=== PATIENT | male | born 1930 | race Caucasian/White ===

== ENCOUNTER → 2018-12-11 | Outpatient (CLI) | payer MEDICARE ==
[2018-12-11 12:14] LABS: Basophils % (A) 1 %; Eosinophils # (A) 0.1 k/uL (0-0.7); Eosinophils % (A) 1 %; HCT 37.8 % (39.0-53.0); HGB 11.7 gm/dL (13.0-17.5); Hypochromasia Moderate; Lymphocytes # (A) 1.3 k/uL (1.0-4.8); Lymphocytes % (A) 23 %; MCH 27.1 pg (25.0-35.0); MCHC 30.9 g/dL (31.0-37.0); MCV 87.5 fL (80.0-100.0); Mean Platelet Volume 7.6; Monocytes # (A) 0.4 k/uL (0-1.0); Monocytes % (A) 6 %; Neutrophils # (A) 3.7 k/uL (1.3-7.7); Neutrophils % (A) 65 %; Platelet Count 224 k/uL (150-450); RBC 4.32 m/uL (4.30-5.90); RDW 15.8 % (11.5-15.5); WBC 5.7 k/uL (3.8-10.6)
[2018-12-11 19:41] LABS: Albumin 4.2 g/dL (3.80-4.90); Albumin/Globulin Ratio 2.1 (1.60-3.17); Anion Gap 8.5 mmol/L (4.00-12.00); Calcium 9.2 mg/dL (8.7-10.3); Carbon Dioxide 26.5 mmol/L (21.6-31.8); Potassium 4.7 mmol/L (3.5-5.5); Total Bilirubin 0.4 mg/dL (0.3-1.2); Total Protein 6.2 g/dL (6.2-8.2)
== END ==
LOC: LABWHC1 11:16
PROVIDERS: ATTEND Internal Medicine Cardiovascular Disease
DX: I50.9 Heart failure, unspecified (principal); I51.9 Heart disease, unspecified
CPT/HCPCS: 36415; 80053; 83880; 85025

== ENCOUNTER 2020-03-10 11:10 | Inpatient (IN) | payer MEDICARE ==
[2020-03-10] MEDS ORDERED: SODIUM CHLORIDE 0.9% 500 ML 500 ML IV STA (11:34)
--- NOTE | 2020-03-10 11:51 | ED ---
General Adult HPI - General Chief complaint: Syncope Stated complaint: Weakness, Near Syncope Time Seen by Provider: 03/10/20 11:19 Source: patient, EMS, RN notes reviewed, old records reviewed Mode of arrival: EMS Limitations: no limitations - History of Present Illness Initial comments: 89-year-old male presenting for evaluation of lightheadedness, near-syncope. Patient has had multiple episodes over the past one week. He had fallen this morning and called EMS. He was unable to stand. He does live at home alone. He has history of atrial fibrillation. He states he's felt lightheaded for at least one week. He fell this morning without any head or neck trauma. He has no pain complaints. Denies chest pain. Denies dyspnea, denies abdominal pain nausea vomiting. He states he did not eat or drink yet today. - Related Data Home Medications Medication Instructions Recorded Confirmed Acetaminophen [Tylenol] 1,000 mg PO BID PRN 03/10/20 03/10/20 Carvedilol [Coreg] 3.125 mg PO BID 03/10/20 03/10/20 Furosemide [Lasix] 40 mg PO DAILY 03/10/20 03/10/20 Glimepiride [Amaryl] 1 mg PO Q48H 03/10/20 03/10/20 Losartan Potassium [Cozaar] 25 mg PO DAILY 03/10/20 03/10/20 Potassium Chloride ER [K-Dur 10] 10 meq PO W/BRKFST 03/10/20 03/10/20 Spironolactone [Aldactone] 25 mg PO DAILY 03/10/20 03/10/20 Tamsulosin HCl [Flomax] 0.4 mg PO DAILY 03/10/20 03/10/20 Warfarin [Coumadin] 2.5 mg PO DAILY 03/10/20 03/10/20 Allergies Allergy/AdvReac Type Severity Reaction Status Date / Time No Known Allergies Allergy Verified 03/10/20 11:48 Review of Systems ROS Statement: Those systems with pertinent positive or pertinent negative responses have been documented in the HPI. ROS Other: All systems not noted in ROS Statement are negative. Past Medical History Past Medical History: Heart Failure, Diabetes Mellitus, Hypertension, Syncope History of Any Multi-Drug Resistant Organisms: None Reported Past Surgical History: Cholecystectomy Past Psychological History: Depression Smoking Status: Former smoker Past Alcohol Use History: None Reported Past Drug Use History: None Reported General Exam Limitations: no limitations General appearance: alert, in no apparent distress Head exam: Present: atraumatic, normocephalic Eye exam: Present: normal appearance, PERRL ENT exam: Present: mucous membranes dry Neck exam: Present: normal inspection. Absent: tenderness, meningismus Respiratory exam: Present: normal lung sounds bilaterally. Absent: respiratory distress, wheezes Cardiovascular Exam: Present: regular rate, irregular rhythm GI/Abdominal exam: Present: soft. Absent: distended, tenderness, guarding Extremities exam: Present: pedal edema Neurological exam: Present: alert, oriented X3, CN II-XII intact. Absent: motor sensory deficit Psychiatric exam: Present: normal affect, normal mood Skin exam: Present: warm, dry, intact Course Vital Signs 03/10/20 03/10/20 03/10/20 11:23 11:52 12:27 Temperature 97.6 F Pulse Rate 72 70 78 Respiratory 18 17 18 Rate Blood Pressure 117/89 122/73 122/73 O2 Sat by Pulse 96 97 95 Oximetry EKG Findings - EKG Comments: EKG Findings:: EKG: Atrial n, left bundle branch block, rate of 74, QRS duration 142, QTC [address] segment elevation. Medical Decision Making - Medical Decision Making 89-year-old male with lightheadedness, near-syncope, multiple falls. Workup reveals mild leukocytosis, stable hemoglobin, INR is 1.4. Urinalysis shows 2+ ketones, likely suggesting a degree of dehydration. Chest x-ray negative for fo haritha pneumonia, consistent with pulmonary hypertension. Patient will be For telemetry, echo for the near syncopal episodes. He is discussed with Dr. Teixeira who will admit. - Lab Data Result diagrams: 03/10/20 11:46 03/10/20 11:46 Lab Results 03/10/20 03/10/20 03/10/20 Range/Units 11:46 11:46 11:46 WBC 11.4 H (3.8-10.6) k/uL RBC 4.62 (4.30-5.90) m/uL Hgb 13.6 (13.0-17.5) gm/dL Hct 42.8 (39.0-53.0) % MCV 92.7 (80.0-100.0) fL MCH 29.5 (25.0-35.0) pg MCHC 31.8 (31.0-37.0) g/dL RDW 13.9 (11.5-15.5) % Plt Count 238 (150-450) k/uL Neutrophils % 82 % Lymphocytes % 9 % Monocytes % 7 % Eosinophils % 0 % Basophils % 0 % Neutrophils # 9.3 H (1.3-7.7) k/uL Lymphocytes # 1.1 (1.0-4.8) k/uL Monocytes # 0.8 (0-1.0) k/uL Eosinophils # 0.1 (0-0.7) k/uL Basophils # 0.0 (0-0.2) k/uL Hypochromasia Slight PT 14.1 H (9.0-12.0) sec INR 1.4 H (<1.2) APTT 30.2 H (22.0-30.0) sec Sodium 142 (137-145) mmol/L Potassium 3.5 (3.5-5.1) mmol/L Chloride 99 (98-107) mmol/L Carbon Dioxide 26 (22-30) mmol/L Anion Gap 17 mmol/L BUN 20 (9-20) mg/dL Creatinine 1.13 (0.66-1.25) mg/dL Est GFR (CKD-EPI)AfAm 67 (>60 ml/min/1.73 sqM) Est GFR (CKD-EPI)NonAf 58 (>60 ml/min/1.73 sqM) Glucose 109 H (74-99) mg/dL Plasma Lactic Acid Joseph (0.7-2.0) mmol/L Calcium 8.7 (8.4-10.2) mg/dL Magnesium 2.3 (1.6-2.3) mg/dL Total Bilirubin 1.2 (0.2-1.3) mg/dL AST 38 (17-59) U/L ALT 18 (4-49) U/L Alkaline Phosphatase 91 (38-126) U/L Troponin I (0.000-0.034) ng/mL Total Protein 7.2 (6.3-8.2) g/dL Albumin 3.9 (3.5-5.0) g/dL Urine Color Urine Appearance (Clear) Urine pH (5.0-8.0) Ur Specific [place] (1.001-1.035) Urine Protein (Negative) Urine Glucose (UA) (Negative) Urine Ketones (Negative) Urine Blood (Negative) Urine Nitrite (Negative) Urine Bilirubin (Negative) Urine Urobilinogen (<2.0) mg/dL Ur Leukocyte Esterase (Negative) Urine RBC (0-5) /hpf Urine WBC (0-5) /hpf Hyaline Casts (0-2) /lpf Urine Mucus (None) /hpf 03/10/20 03/10/20 03/10/20 Range/Units 11:46 11:46 13:05 WBC (3.8-10.6) k/uL RBC (4.30-5.90) m/uL Hgb (13.0-17.5) gm/dL Hct (39.0-53.0) % MCV (80.0-100.0) fL MCH (25.0-35.0) pg MCHC (31.0-37.0) g/dL RDW (11.5-15.5) % Plt Count (150-450) k/uL Neutrophils % % Lymphocytes % % Monocytes % % Eosinophils % % Basophils % % Neutrophils # (1.3-7.7) k/uL Lymphocytes # (1.0-4.8) k/uL Monocytes # (0-1.0) k/uL Eosinophils # (0-0.7) k/uL Basophils # (0-0.2) k/uL Hypochromasia PT (9.0-12.0) sec INR (<1.2) APTT (22.0-30.0) sec Sodium (137-145) mmol/L Potassium (3.5-5.1) mmol/L Chloride (98-107) mmol/L Carbon Dioxide (22-30) mmol/L Anion Gap mmol/L BUN (9-20) mg/dL Creatinine (0.66-1.25) mg/dL Est GFR (CKD-EPI)AfAm (>60 ml/min/1.73 sqM) Est GFR (CKD-EPI)NonAf (>60 ml/min/1.73 sqM) Glucose (74-99) mg/dL Plasma Lactic Acid Joseph 1.5 (0.7-2.0) mmol/L Calcium (8.4-10.2) mg/dL Magnesium (1.6-2.3) mg/dL Total Bilirubin (0.2-1.3) mg/dL AST (17-59) U/L ALT (4-49) U/L Alkaline Phosphatase (38-126) U/L Troponin I 0.013 (0.000-0.034) ng/mL Total Protein (6.3-8.2) g/dL Albumin (3.5-5.0) g/dL Urine Color Yellow Urine Appearance Clear (Clear) Urine pH 6.0 (5.0-8.0) Ur Specific [place] 1.021 (1.001-1.035) Urine Protein 1+ H (Negative) Urine Glucose (UA) Negative (Negative) Urine Ketones 2+ H (Negative) Urine Blood Negative (Negative) Urine Nitrite Negative (Negative) Urine Bilirubin Negative (Negative) Urine Urobilinogen 4.0 (<2.0) mg/dL Ur Leukocyte Esterase Negative (Negative) Urine RBC <1 (0-5) /hpf Urine WBC 1 (0-5) /hpf Hyaline Casts 14 H (0-2) /lpf Urine Mucus Occasional H (None) /hpf Disposition Clinical Impression: Dehydration, Near syncope Disposition: ADMITTED IP TO THIS [facility] Condition: Stable Is patient prescribed a controlled substance at d/c from ED?: No Referrals: Monica King MD [Primary Care Provider] - 1-2 days Decision to Admit Reason: Admit from EC Decision Date: 03/10/20 Decision Time: 14:34
[2020-03-10 12:03] LABS: Basophils % (A) 0 %; Eosinophils # (A) 0.1 k/uL (0-0.7); Eosinophils % (A) 0 %; HCT 42.8 % (39.0-53.0); HGB 13.6 gm/dL (13.0-17.5); Hypochromasia Slight; Lymphocytes # (A) 1.1 k/uL (1.0-4.8); Lymphocytes % (A) 9 %; MCH 29.5 pg (25.0-35.0); MCHC 31.8 g/dL (31.0-37.0); MCV 92.7 fL (80.0-100.0); Mean Platelet Volume 7.8; Monocytes # (A) 0.8 k/uL (0-1.0); Monocytes % (A) 7 %; Neutrophils # (A) 9.3 k/uL (1.3-7.7); Neutrophils % (A) 82 %; Platelet Count 238 k/uL (150-450); RBC 4.62 m/uL (4.30-5.90); RDW 13.9 % (11.5-15.5); WBC 11.4 k/uL (3.8-10.6)
[2020-03-10 12:13] LABS: INR 1.4 (<1.2); Partial Thromboplastin Time 30.2 sec (22.0-30.0); Prothrombin Time 14.1 sec (9.0-12.0)
[2020-03-10 12:23] LABS: Albumin 3.9 g/dL (3.5-5.0); Calcium 8.7 mg/dL (8.4-10.2); Magnesium 2.3 mg/dL (1.6-2.3); Potassium 3.5 mmol/L (3.5-5.1); Total Bilirubin 1.2 mg/dL (0.2-1.3); Total Protein 7.2 g/dL (6.3-8.2)
--- NOTE | 2020-03-10 12:31 | XR ---
EXAMINATION TYPE: XR chest 2V DATE OF EXAM: 03/10/2020 CLINICAL HISTORY: Syncope TECHNIQUE: Frontal and lateral views of the chest are obtained. COMPARISON: None FINDINGS: The cardiomediastinal silhouette is within normal limits for size. There is prominence of the right and left pulmonary arteries. There is no focal air space opacity, pleural effusion, or pneu mothorax seen. The osseous structures are intact. IMPRESSION: Prominent bilateral pulmonary arteries. Findings may represent pulmonary hypertension.
[2020-03-10 13:54] LABS: Appearance,Urine Clear (Clear); Bilirubin,Urine Negative (Negative); Blood,Urine Negative (Negative); Color,Urine Yellow; Glucose,Urine (UA) Negative (Negative); Hyaline Casts,Urine 14 /lpf (0-2); Ketones,Urine 2+ (Negative); Leukocyte Esterase,Urine Negative (Negative); Mucus,Urine Occasional /hpf; Nitrite,Urine Negative (Negative); Protein,Urine 1+ (Negative); RBC,Urine <1 /hpf (0-5); Specific Gravity,Urine 1.021 (1.001-1.035); WBC,Urine 1 /hpf (0-5)
[2020-03-10] MEDS ORDERED: ACETAMINOPHEN TAB 325 MG TAB PO PRN (14:33)
[2020-03-10] MEDS ORDERED: NALOXONE 0.4 MG/ML 1 ML VIAL IV PRN (14:33)
[2020-03-10] MEDS: SODIUM CHLORIDE 0.9% 1,000 ML IV SCH ×2 (15:21→19:37)
[2020-03-10] MEDS ORDERED: ALPRAZolam 0.25 MG TAB PO PRN (16:44)
[2020-03-10] MEDS ORDERED: HYDROmorphone 0.5 MG/0.5 ML SYRINGE IVP PRN (16:44)
[2020-03-10] MEDS ORDERED: GLIMEPIRIDE 1 MG TAB PO ONE (17:00)
[2020-03-10] MEDS ORDERED: WARFARIN 5 MG TAB PO ONE (17:15)
[2020-03-10] MEDS ORDERED: WARFARIN 2 MG TAB PO ONE (17:15)
[2020-03-10 17:22] LABS: Glucose,Whole Blood 102 mg/dL (75-99)
--- NOTE | 2020-03-10 17:33 | CT ---
EXAMINATION TYPE: CT brain wo con DATE OF EXAM: 03/10/2020 COMPARISON: None HISTORY: R/o stroke activity CT DLP: 1139.5 mGycm Automated exposure control for dose reduction was used. Images were obtained of the brain without contrast. There is diffuse cerebral cortical atrophy. There is no mass effect nor midline shift. There is no si gn of intracranial hemorrhage. Calvarium is intact. IMPRESSION: Cerebral atrophy. No acute intracranial abnormality.
[2020-03-10] MEDS: INSULIN ASPART (NovoLOG) 100 UNIT/ML VIAL SQ SCH ×2 (17:46→21:09)
[2020-03-10] MEDS: ASPIRIN 81 MG PO SCH (17:52)
--- NOTE | 2020-03-10 18:15 | HP ---
HISTORY AND PHYSICAL DATE OF SERVICE: 03/10/2020 CHIEF COMPLAINTS: Weakness, syncope and falls. HISTORY OF PRESENT ILLNESS: This 89-year-old gentleman with a past medical history of multiple medical problems, including atrial ablation, CHF, history of diabetes mellitus, type 2, hypertension, history of DJD, history of respiratory disorder, history of bilateral peripheral neuropathy, cholecystomy, anxiety, depression, being followed by Dr. King in the outpatient setting, is apparently living by himself. The patient is reporting multiple falls and progressive weakness which was aggravated in the last week, and the patient has had significant unsteadiness. The patient is unable to stand. The patient also has a history of atrial fibrillation. Patient was taken to [facility] and was admitted for evaluation and treatment. Chest x-ray, reviewed personally by me, showed normal pulmonary arteries. There is no history of any fever, rigor or chills. No history of headache or seizures at this time. PAST MEDICAL HISTORY: History of atrial fibrillation, CHF, diabetes mellitus, type 2, hypertension, DJD, history of cholecystectomy, history of peripheral neuropathy. HOME MEDICATIONS: 1. Amaryl 1 mg q.48 hours. 2. Lasix. 3. Coumadin. 4. Flomax. 5. Aldactone. 6. Tylenol. 7. K-Dur 10 mEq. 8. Cozaar. 9. Coreg. ALLERGIES: NONE. FAMILY HISTORY: No history of heart disease or strokes in the family. SOCIAL HISTORY: No history of smoking. No history of alcohol intake. REVIEW OF SYSTEMS: ENT: Diminished hearing. Diminished vision. CARDIOVASCULAR SYSTEM: As mentioned earlier. RESPIRATORY SYSTEM: As mentioned earlier. GI: No nausea, vomiting. : No dysuria or retention. NERVOUS SYSTEM: No numbness. Otherwise as mentioned earlier. ALLERGY/IMMUNOLOGY: No asthma, hayfever. MUSCULOSKELETAL: As mentioned earlier. HEMATOLOGY/ONCOLOGY: No history of anemia. ENDOCRINE: Diabetes mellitus. CONSTITUTIONAL: As mentioned earlier. DERMATOLOGY: Negative. RHEUMATOLOGY: Negative. PSYCHIATRY: As mentioned earlier. PHYSICAL EXAMINATION: Patient alert and oriented x3. Pulse 79, blood pressure 127/62, respiration 18, temperature 97.3, pulse ox 97% on room air. HEENT: Conjunctivae normal. NECK: No jugular venous distention. CARDIOVASCULAR SYSTEM: S1, S2 muffled. RESPIRATORY SYSTEM: Breath sounds diminished at the bases. A few rhonchi. No crackles. ABDOMEN: Soft, non-tender. No mass palpable. LEGS: Examination of the right leg reveals significant pain and swelling of the right knee joint present. Otherwise, movements are limited. NERVOUS SYSTEM: Possible right lateral rectus paralysis present. Otherwise, diffuse tremors, right more than the left. Gait dysfunction also present. SKIN: No ulcer, rash, bleeding. JOINTS: As mentioned earlier. LYMPHATICS: No lymph node palpable in neck, axillae or groin. LABS: WBC 11.4. INR is 1.4. Glucose 109. ASSESSMENT: 1. Recurrent syncope and falls. Rule out acute stroke. 2. Possible right lateral rectus palsy and cerebellar signs. Rule out vertebrobasilar insufficiency. 3. Coumadin monitoring. 4. Increased white count. 5. Atrial fibrillation, chronic. 6. History of congestive heart failure; ejection fraction unknown. 7. Diabetes mellitus, type 2. 8. Hypertension. 9. History of degenerative joint disease. 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 11.History of syncope. 12.History of peripheral neuropathy in bilateral feet. 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 14.History of benign prostatic hypertrophy. 15.History of cholecystectomy. 16.History of anxiety, depression. 17.Obesity with a body mass index of 40.2. 18.FULL CODE. RECOMMENDATIONS AND DISCUSSION: In this 89-year-old gentleman who was admitted with multiple medical issues, we will monitor the patient closely. I would order a CT scan of the brain, neuro checks and neurologic evaluation, complete neurovascular workup. PT/OT evaluation. The patient will require rehab at this time. I would initiate antiplatelet agents. Monitor blood sugars closely. Resume the home medication. Otherwise, the Coumadin is subtherapeutic. Will also obtain cardiology evaluation. The prognosis is guarded because of multiple complex medical issues. Further recommendations to follow. A copy of this dictation is being forwarded to Dr. King, who is the primary physician. MMSHELLL / CARLINEN: [id number] /
--- NOTE | 2020-03-10 18:46 | US ---
EXAMINATION TYPE: US carotid duplex BILAT DATE OF EXAM: 03/10/2020 COMPARISON: NONE CLINICAL HISTORY: stroke. syncope EXAM MEASUREMENTS: RIGHT: Peak Systolic Velocity (PSV) cm/sec ----- Right CCA: 77.8 ----- Right ICA: 93.2 ----- Right ECA: 113 ICA/CCA ratio: 1.20 RIGHT: End Diastole cm/sec ----- Right CCA: 14.7 ----- Right ICA: 14.7 ----- Right ECA: 11.2 LEFT: Peak Systolic Velocity (PSV) cm/sec ----- Left CCA: 86.9 ----- Left ICA: 180 ----- Left ECA: 144 ICA/CCA ratio: 2.07 LEFT: End Diastole cm/sec ----- Left CCA: 17.9 ----- Left ICA: 27.1 ----- Left ECA: 17.2 VERTEBRALS (direction of flow): Right Vertebral: unable to visualize Left Vertebral: unable to visualize *Technical limitations due to patient's breathing and body habitus. Mild to moderate plaque bilateral bifurcations. Velocities appear mildly elevated left ICA IMPRESSION: Vertebral arteries were not visualized. There is plaque formation and estimated stenosis of 35% in the right internal carotid artery and 50-7 0% stenosis in the left internal carotid artery. Criteria for Assigning % of Stenosis / Diameter reduction (Estimation based on the indirect measurements of the internal carotid artery velocities (ICA PSV). 1. Normal (no stenosis)=ICA PSV < 125 cm/s: ratio < 2.0: ICA EDV<40 cm/s. 2. Less than 50% stenosis=ICA PSV < 125 cm/s: ratio < 2.0: ICA EDV<40 cm/s. 3. 50 to 69% stenosis=ICA PSV of 125 to 230 cm/s: ration 2.0 ? 4.0: ICA EDV 40-100 cm/s. 4. Greater than 70% stenosis to near occlusion= ICA PSV > 230 cm/s: ratio > 4.0: ICA EDV > 100 cm/s. 5. Near occlusion= ICA PSV velocities may be low or undetectable: variable ratio and ICA EDV. 6. Total occlusion=unable to detect flow.
[2020-03-10] MEDS: POTASSIUM CHLORIDE ER 20 MEQ TAB.ER PO SCH ×2 (19:36→21:18)
[2020-03-10 19:57] LABS: Glucose,Whole Blood 106 mg/dL (75-99)
[2020-03-11 07:14] LABS: Glucose,Whole Blood 87 mg/dL (75-99)
[2020-03-11] MEDS: INSULIN ASPART (NovoLOG) 100 UNIT/ML VIAL SQ SCH ×4 (07:40→20:32)
[2020-03-11 07:56] LABS: Basophils % (A) 0 %; Eosinophils % (A) 0 %; HCT 39.8 % (39.0-53.0); HGB 12.5 gm/dL (13.0-17.5); Hypochromasia Slight; Lymphocytes # (A) 1.1 k/uL (1.0-4.8); Lymphocytes % (A) 12 %; MCH 28.9 pg (25.0-35.0); MCHC 31.6 g/dL (31.0-37.0); MCV 91.6 fL (80.0-100.0); Mean Platelet Volume 8.3; Monocytes # (A) 0.6 k/uL (0-1.0); Monocytes % (A) 7 %; Neutrophils # (A) 7.4 k/uL (1.3-7.7); Neutrophils % (A) 79 %; Platelet Count 236 k/uL (150-450); RBC 4.34 m/uL (4.30-5.90); RDW 14.1 % (11.5-15.5); WBC 9.3 k/uL (3.8-10.6)
[2020-03-11 08:03] LABS: INR 1.5 (<1.2); Prothrombin Time 14.6 sec (9.0-12.0)
[2020-03-11] MEDS: SPIRONOLACTONE 25 MG TAB PO SCH (08:09)
[2020-03-11] MEDS: PANTOPRAZOLE 40 MG TABLET PO SCH (08:09)
[2020-03-11] MEDS: POTASSIUM CHLORIDE ER 10 MEQ TAB.ER.PRT PO SCH (08:09)
[2020-03-11] MEDS: TAMSULOSIN 0.4 MG CAP.ER.24H PO SCH (08:09)
[2020-03-11] MEDS: ASPIRIN 81 MG PO SCH (08:09)
[2020-03-11 08:18] LABS: Calcium 8.2 mg/dL (8.4-10.2); Magnesium 2.2 mg/dL (1.6-2.3); Potassium 3.5 mmol/L (3.5-5.1)
[2020-03-11] MEDS: HYDROcodone/APAP 5-325MG 1 EACH TAB PO PRN ×2 (10:22→17:22)
--- NOTE | 2020-03-11 11:00 | ECHOF ---
Referral Reason:syncope MEASUREMENTS -------- HEIGHT: 177.8 cm WEIGHT: 127.0 kg BP: 122/73 RVIDd: 3.9 cm (< 3.3) IVSd: 1.6 cm (0.6 - 1.1) LVIDd: 5.6 cm (3.9 - 5.3) LVPWd: 1.5 cm (0.6 - 1.1) IVSs: 2.3 cm LVIDs: 4.1 cm LVPWs: 1.9 cm LA Diam: 3.7 cm (2.7 - 3.8) Ao Diam: 4.3 cm (2.0 - 3.7) AV Cusp: 2.0 cm (1.5 - 2.6) MV EXCURSION: 21.085 mm (> 18.000) MV EF SLOPE: 82 mm/s (70 - 150) EPSS: 1.8 cm AV maxP.33 mmHg AV meanP.12 mmHg RAP: 5.00 mmHg RVSP: 30.01 mmHg FINDINGS -------- Atrial fibrillation. This was a technically difficult study with suboptimal views. The left ventricular size is normal. There is moderate concentric left ventricular hypertrophy. O verall left ventricular systolic function is mild-moderately impaired with, an EF between 40 - 45 %. The right ventricle is moderately enlarged. The left atrium is normal in size. The right atrium is normal in size. Lumason used Interatrial and interventricular septum intact. There is mild aortic valve sclerosis. Peak/mean gradient across the Aortic Valve is 14.33mmHg / 6.1 2mmHg. The mitral valve leaflets are mildly thickened. Mild mitral annular calcification present. Mild m itral regurgitation is present. Mild tricuspid regurgitation present. Right ventricular systolic pressure is normal at < 35 mmHg. Trace/mild (physiologic) pulmonic regurgitation. The aortic root is dilated measuring 4.3cm. Normal inferior vena cava with normal inspiratory collapse consistent with estimated right atrial pre ssure of 5 mmHg. There is no pericardial effusion. CONCLUSIONS -------- 1. Atrial fibrillation. 2. This was a technically difficult study with suboptimal views. 3. The left ventricular size is normal. 4. There is moderate concentric left ventricular hypertrophy. 5. Overall left ventricular systolic function is mild-moderately impaired with, an EF between 40 - 45 %. 6. The right ventricle is moderately enlarged. 7. Lumason used 8. There is mild aortic valve sclerosis. 9. Peak/mean gradient across the Aortic Valve is 14.33mmHg / 6.12mmHg. 10. The mitral valve leaflets are mildly thickened. 11. Mild mitral annular calcification present. 12. Mild mitral regurgitation is present. 13. Mild tricuspid regurgitation present. 14. Trace/mild (physiologic) pulmonic regurgitation. 15. The aortic root is dilated measuring 4.3cm. 16. There is no pericardial effusion. REMOTE [employer]ICAL CODER: Gina Gutierrez RDCS
[2020-03-11 11:47] LABS: Glucose,Whole Blood 101 mg/dL (75-99)
--- NOTE | 2020-03-11 12:15 | P.CNNES ---
History of Present Illness Consult date: 03/11/20 Requesting physician: Jose Mueller Reason for Consult: Weakness and near syncope, multiple falls History of Present Illness: Patient is a 89-year-old male presenting for evaluation of lightheadedness and near syncope. He had fallen on the morning he was called. His vital signs on arrival was 117/89, pulse rate 72 temperature 97.6. Saturation 96% on room air. Patient tells me that he passed out 3 different times and appeared of 3 days. He says that he was walking with his walker, when he became dizzy for 15-20 s econds and then passed out. He was out for only a few seconds. He denies any tongue bite or urinary incontinence. Patient states that he does get dizzy sometimes when he is getting up from laying to standing and takes it easy. Otherwise does not get dizzy when he is rolling over in the bed or bending downwards. Denies any focal symptoms whatsoever. No history of seizures in the past. Chest x-ray showed prominent bilateral pulmonary arteries. Findings may represent pulmonary hypertension. EKG shows atrial fibrillation, left bundle branch block. 2-D echo showed atrial fibrillation. Left ventricle size is normal. Moderate concentric LVH. EF is 40-45%. Right ventricle is moderately enlarged. Mitral valve leaflets are mildly thickened. CT head showed cerebral atrophy. No acute intracranial abnormality. Carotid Doppler showed plaque formation and estimated stenosis of 35% in the right internal carotid artery and 50-70% stenosis in the left ICA. Vertebral arteries were not able to be visualized. CBC is normal. INR 1.5, Chem-7 normal. Total cholesterol 143, LDL 96, HDL 30, triglycerides 84. UA negative. Patient is on Coumadin. Also on carvedilol, Lasix. Patient's orthostatics shows supine blood pressure 131/60 with pulse of 83. On sitting was 127/59 with pulse of 81. Standing 131/68 with pulse of 89. No orthostatics. Review of Systems Complains of right knee pain. He states he had right leg pain, since he injured his knee as it did in school. Denies any shortness of breath wheezing or cough. Denies any numbness tingling focal weakness except right leg as above. Denies problems with vision. All other 14 point review of systems unremarkable. 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 Past Anesthesia/Blood Transfusion Reactions: No Reported Reaction Smoking Status: Former smoker - Past Family History Father Family Medical History: No Reported History Mother Family Medical History: No Reported History Medications and Allergies Home Medications Medication Instructions Recorded Confirmed Type Acetaminophen [Tylenol] 1,000 mg PO BID PRN 03/10/20 03/10/20 History Carvedilol [Coreg] 3.125 mg PO BID 03/10/20 03/10/20 History Furosemide [Lasix] 40 mg PO DAILY 03/10/20 03/10/20 History Glimepiride [Amaryl] 1 mg PO Q48H 03/10/20 03/10/20 History Losartan Potassium [Cozaar] 25 mg PO DAILY 03/10/20 03/10/20 History Potassium Chloride ER [K-Dur 10] 10 meq PO W/BRKFST 03/10/20 03/10/20 History Spironolactone [Aldactone] 25 mg PO DAILY 03/10/20 03/10/20 History Tamsulosin HCl [Flomax] 0.4 mg PO DAILY 03/10/20 03/10/20 History Warfarin [Coumadin] 2.5 mg PO DAILY 03/10/20 03/10/20 History Allergies Allergy/AdvReac Type Severity Reaction Status Date / Time No Known Allergies Allergy Verified 03/10/20 11:48 Physical Examination - Vital Signs Vital Signs: Vital Signs Temp Pulse Pulse Pulse Pulse Pulse Resp 03/11/20 05:00 98.1 F 67 16 03/10/20 23:10 20 03/10/20 21:59 97.0 F L 70 03/10/20 16:40 79 91 66 03/10/20 16:00 79 18 03/10/20 15:54 97.3 F L 79 18 03/10/20 15:08 94 18 03/10/20 12:27 78 18 03/10/20 11:52 70 17 03/10/20 11:23 97.6 F 72 18 BP BP BP BP BP Pulse Ox 03/11/20 05:00 140/81 95 03/10/20 23:10 03/10/20 21:59 136/60 126/66 126/63 95 03/10/20 16:40 127/59 131/68 131/60 97 03/10/20 16:00 03/10/20 15:54 127/62 97 03/10/20 15:08 127/90 100 03/10/20 12:27 122/73 95 03/10/20 11:52 122/73 97 03/10/20 11:23 117/89 96 Intake and Output 03/10/20 03/11/20 03/11/20 22:59 06:59 14:59 Intake Total 590 Output Total 300 200 Balance -300 390 Intake: Oral 590 Output: Urine 300 200 Other: Voiding Method Bedpan Bedpan Bedpan Urinal Urinal Urinal # Voids 1 # Bowel Movements 1 Weight 127.006 kg On examination patient is an elderly male, in no acute distress. He is alert and awake oriented to time place and person. Speech and language functions recent and remote memory normal. Attention and concentration fund of knowledge is adequate. On cranial nerve examination pupils are round and reactive to light, visual bangura are full to confrontation. Extraocular muscles are intact with no nystagmus. Face is symmetric, tongue protrudes the midline. Palatal elevation and sensation normal. Hearing is slightly decreased, shoulder shrug normal. On muscle strength testing there is no pronator drift and the strength is normal in both arms distally and proximally. His ankles are normal. His left knee and hip is normal. Right knee is very painful. Right hip is 4+ to 5-, partly due to pain. Reflexes are diminished and plantars downgoing. Sensory touch is equal. No ataxia for [id number] testing. Tone and bulk of muscles normal. Gait deferred. No obvious bruit, S1 and S2 audible. Patient has atrial fibrillation. Abdomen is soft nontender. Chest is clear. Results - Laboratory Findings CBC and BMP: 03/11/20 06:51 03/11/20 06:51 Abnormal Lab Findings: Abnormal Labs 03/10/20 03/10/20 03/10/20 11:46 11:46 11:46 WBC 11.4 H Hgb Neutrophils # 9.3 H PT 14.1 H INR 1.4 H APTT 30.2 H Glucose 109 H POC Glucose (mg/dL) Calcium HDL Cholesterol Urine Protein Urine Ketones Hyaline Casts Urine Mucus 03/10/20 03/10/20 03/10/20 13:05 17:21 19:55 WBC Hgb Neutrophils # PT INR APTT Glucose POC Glucose (mg/dL) 102 H 106 H Calcium HDL Cholesterol Urine Protein 1+ H Urine Ketones 2+ H Hyaline Casts 14 H Urine Mucus Occasional H 03/11/20 03/11/20 03/11/20 06:51 06:51 06:51 WBC Hgb 12.5 L Neutrophils # PT 14.6 H INR 1.5 H APTT Glucose POC Glucose (mg/dL) Calcium 8.2 L HDL Cholesterol 30 L Urine Protein Urine Ketones Hyaline Casts Urine Mucus Assessment and Plan Assessment: * 89-year-old male admitted with 3 episodes of syncopal spells. Patient states that he was feeling dizzy for about 15-20 seconds before he passed out. No significant postictal confusion. Symptoms suggestive of possible orthostasis versus arrhythmia. Patient's orthostatics checked in the hospital however was negative. * Atrial fibrillation * Chronic right knee pain. Plan: * Cardiology is on board, need to rule out arrhythmia. Orthostatics checked in the hospital were negative. * We will check EEG to rule out any epileptiform activity, just to complete workup, although index of suspicion for seizures is extremely low. * We will check x-ray of the right knee because of pain. * We will check B12, folate, TSH.
--- NOTE | 2020-03-11 14:12 | P.CRDCN ---
History of Present Illness History of present illness: HISTORY OF PRESENTING ILLNESS This is a pleasant 89-year-old male past medical history significant for chronic persistent atrial fibrillation, dilated cardiomyopathy, chronic systolic heart failure and diabetes mellitus. He follows in the office with Dr. Guadarrama. We have been asked to see in consultation for syncope. He states yesterday he woke up in the morning feeling normal. He sat up in bed and felt mildly light headed but nothing significant. He stood up and used his walked to walk to the bathroom and then on to the kitchen. He was standing in front of the fridge when he all of sudden felt very dizzy and dropped to the floor. He doesn't think he actually passed out because he remembers falling and his face hitting the fridge. He was then unable to get himself up off the ground. He states he has had similar episodes occur over the previous 1 week approximately 3 times. He states his blood pressures have been running low at home. Losartan and coreg have not been resumed since admission. He denies LOC. Echocardiogram obtained on this admission reveals improved LV function from previous echo in the office. EF 40-45%, aortic stenosis with mean gradient of 6 mmHg, mild MR and mild TR. DIAGNOSTICS EKG reveals atrial fibrillation with left bundle branch block. Chest xray prominent bilateral pulmonary arteries. CT brain negative for an acute process. Carotid dopplers reveal plaque formation with estimated 35% stenosis of the GRISELDA and 50-70% in the LIC. Laboratory reviewed, WBC 9.3, hemoglobin 12.5, platelets 236, INR 1.5, sodium 138, potassium 3.5, creatinine 0.84, troponin negative 1 and LDL 96. Current cardiac medications include Lasix 40 mg daily, Coumadin 2.5 mg daily, Aldactone 25 mg daily, losartan 25 mg daily and carvedilol 3.125 mg twice a day. REVIEW OF SYSTEMS At the time of my exam: CONSTITUTIONAL: Denies fever or chills. CARDIOVASCULAR: Denies chest pain, shortness of breath, orthopnea, PND or palpitations. RESPIRATORY: Denies cough. GASTROINTESTINAL: Denies abdominal pain, diarrhea, constipation, nausea or vomiting. MUSCULOSKELETAL: Denies myalgias. NEUROLOGIC: Denies numbness, tingling or weakness. ENDOCRINE: Denies fatigue, weight change, polydipsia or polyurina. GENITOURINARY: Denies burning, hematuria or urgency with micturation. HEMATOLOGIC: Denies history of anemia or bleeding. PHYSICAL EXAMINATION Blood pressure 127/77 heart rate 83 afebrile and maintaining oxygen saturation on room air. CONSTITUTIONAL: No apparent distress. Obese. HEENT: Head is normocephalic. Pupils are equal, round. Sclerae anicteric. Mucous membranes of the mouth are moist. No JVD. No carotid bruit. CHEST EXAMINATION: Lungs are clear to auscultation. No chest wall tenderness is noted on palpation or with deep breathing. HEART EXAMINATION: Irregular rate and rhythm. S1, S2 heard. Systolic ejection murmur at the base, no gallops or rub. ABDOMEN: Soft, nontender. Positive bowel sounds. EXTREMITIES: 2+ peripheral pulses, no lower extremity edema and no calf tenderness. NEUROLOGIC EXAMINATION: Patient is awake, alert and oriented x3. ASSESSMENT Near syncope Dilated cardiomyopathy Chronic persistent atrial fibrillation Hypertension Diabetes mellitus PLAN He has been negative for orthostatic changes. Telemetry tracings reveal persistent atrial fibrillation with no significant pauses. Resume coreg and lasix as previously ordered. Continue to monitor blood pressure and telemetry tracings for an additional 24 hours. Further recommendations to follow based on clinical course. Thank you kindly for this consultation. Nurse Practitioner note has been reviewed, I agree with a documented findings and plan of care. Patient was seen and examined. 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 Past Anesthesia/Blood Transfusion Reactions: No Reported Reaction Smoking Status: Former smoker - Past Family History Father Family Medical History: No Reported History Mother Family Medical History: No Reported History Medications and Allergies Home Medications Medication Instructions Recorded Confirmed Type Acetaminophen [Tylenol] 1,000 mg PO BID PRN 03/10/20 03/10/20 History Carvedilol [Coreg] 3.125 mg PO BID 03/10/20 03/10/20 History Furosemide [Lasix] 40 mg PO DAILY 03/10/20 03/10/20 History Glimepiride [Amaryl] 1 mg PO Q48H 03/10/20 03/10/20 History Losartan Potassium [Cozaar] 25 mg PO DAILY 03/10/20 03/10/20 History Potassium Chloride ER [K-Dur 10] 10 meq PO W/BRKFST 03/10/20 03/10/20 History Spironolactone [Aldactone] 25 mg PO DAILY 03/10/20 03/10/20 History Tamsulosin HCl [Flomax] 0.4 mg PO DAILY 03/10/20 03/10/20 History Warfarin [Coumadin] 2.5 mg PO DAILY 03/10/20 03/10/20 History Allergies Allergy/AdvReac Type Severity Reaction Status Date / Time No Known Allergies Allergy Verified 03/10/20 11:48 Physical Exam Vitals: Vital Signs Temp Pulse Pulse Pulse Pulse Pulse Resp 03/11/20 12:44 97.7 F 78 80 83 03/11/20 05:00 98.1 F 67 16 03/10/20 23:10 20 03/10/20 21:59 97.0 F L 70 20 03/10/20 16:40 79 91 66 03/10/20 16:00 79 18 03/10/20 15:54 97.3 F L 79 18 03/10/20 15:08 94 18 BP BP BP BP BP Pulse Ox 03/11/20 12:44 136/77 103/66 127/77 03/11/20 05:00 140/81 95 03/10/20 23:10 03/10/20 21:59 136/60 126/66 126/63 95 03/10/20 16:40 127/59 131/68 131/60 97 03/10/20 16:00 03/10/20 15:54 127/62 97 03/10/20 15:08 127/90 100 Intake and Output 03/10/20 03/11/20 03/11/20 22:59 06:59 14:59 Intake Total 590 Output Total 300 200 Balance -300 390 Intake: Oral 590 Output: Urine 300 200 Other: Voiding Method Bedpan Bedpan Bedpan Urinal Urinal Urinal # Voids 1 # Bowel Movements 1 Weight 127.006 kg Results 03/11/20 06:51 03/11/20 06:51 Coagulation 03/11/20 Range/Units 06:51 PT 14.6 H (9.0-12.0) sec Lipids 03/11/20 Range/Units 06:51 Triglycerides 84 (<150) mg/dL Cholesterol 143 (<200) mg/dL HDL Cholesterol 30 L (40-60) mg/dL CBC 03/11/20 Range/Units 06:51 WBC 9.3 (3.8-10.6) k/uL RBC 4.34 (4.30-5.90) m/uL Hgb 12.5 L (13.0-17.5) gm/dL Hct 39.8 (39.0-53.0) % Plt Count 236 (150-450) k/uL Comprehensive Metabolic Panel 03/11/20 Range/Units 06:51 Sodium 138 (137-145) mmol/L Potassium 3.5 (3.5-5.1) mmol/L Chloride 104 (98-107) mmol/L Carbon Dioxide 25 (22-30) mmol/L BUN 17 (9-20) mg/dL Creatinine 0.84 (0.66-1.25) mg/dL Glucose 80 (74-99) mg/dL Calcium 8.2 L (8.4-10.2) mg/dL Current Medications Generic Name Dose Route Start Last Admin Trade Name Freq PRN Reason Stop Dose Admin Acetaminophen 650 mg 03/10/20 14:33 03/11/20 04:37 Tylenol Tab PO 650 mg Q6HR PRN Administration Mild Pain or Fever > 100.5 Hydrocodone Bitart/Acetaminophen 1 each 03/10/20 16:44 03/11/20 10:22 [place]y 5-325 PO 1 each Q6HR PRN Administration Pain Alprazolam 0.25 mg 03/10/20 16:44 Xanax PO TID PRN Anxiety Aspirin 81 mg 03/10/20 17:15 03/11/20 08:09 Aspirin PO 81 mg DAILY HEATHER Administration Glimepiride 1 mg 03/12/20 07:30 Amaryl PO Q48H HEATHER Hydromorphone HCl 0.5 mg 03/10/20 16:44 Dilaudid IVP Q6HR PRN Severe Pain Sodium Chloride 1,000 mls @ 100 mls/hr 03/10/20 14:45 03/10/20 19:37 Saline 0.9% IV 100 mls/hr .Q10H HEATHER Administration Insulin Aspart 0 unit 03/10/20 17:30 03/11/20 11:56 Novolog SQ Not Given ACHS [facility] Protocol Miscellaneous Information 1 each 03/10/20 16:56 Coumadin Per Pharmacy MISCELLANE DIRECTED PRN Per Protocol Naloxone HCl 0.2 mg 03/10/20 14:33 Narcan IV Q2M PRN Opioid Reversal Pantoprazole Sodium 40 mg 03/11/20 07:30 03/11/20 08:09 Protonix PO 40 mg AC-BRKFST HEATHER Administration Potassium Chloride 10 meq 03/11/20 07:30 03/11/20 08:09 K-Dur 10 PO 10 meq WKFST HEATHER Administration Spironolactone 25 mg 03/11/20 09:00 03/11/20 08:09 Aldactone PO 25 mg DAILY HEATHER Administration Tamsulosin HCl 0.4 mg 03/11/20 09:00 03/11/20 08:09 Flomax PO 0.4 mg DAILY HEATHER Administration Warfarin Sodium 2.5 mg 03/12/20 18:00 Coumadin PO DAILY@1800 [facility] Protocol Warfarin Sodium 3 mg 03/11/20 18:00 Coumadin PO 03/11/20 18:01 ONCE@1800 ONE Intake and Output 03/10/20 03/11/20 03/11/20 22:59 06:59 14:59 Intake Total 590 Output Total 300 200 Balance -300 390 Intake: Oral 590 Output: Urine 300 200 Other: Voiding Method Bedpan Bedpan Bedpan Urinal Urinal Urinal # Voids 1 # Bowel Movements 1 Weight 127.006 kg 03/11/20 06:51 03/11/20 06:51
[2020-03-11] MEDS: SODIUM CHLORIDE 0.9% 1,000 ML IV SCH (14:22)
--- NOTE | 2020-03-11 15:42 | XR ---
EXAMINATION TYPE: XR Hip Complete RT DATE OF EXAM: 03/11/2020 CLINICAL HISTORY: Hip pain, fall TECHNIQUE: AP and frogleg views of the right hip are obtained. COMPARISON: None. FINDINGS: There is no acute fracture or dislocation of the right hip. The hip joint space appears w ithin normal limits. There is extensive vascular calcification seen. IMPRESSION: There is no acute fracture or dislocation of the right hip.
--- NOTE | 2020-03-11 15:49 | XR ---
EXAMINATION TYPE: XR knee complete RT DATE OF EXAM: 03/11/2020 CLINICAL HISTORY: Knee pain TECHNIQUE: AP, lateral, and oblique views of the right knee are obtained. COMPARISON: Right knee radiograph 09/27/2015 FINDINGS: There is no acute fracture/dislocation evident in right knee. There is medial and lateral joint space narrowing and mild medial subluxation of the distal femur on the proximal tibia, increase d from 2016 radiograph comparison. The medial compartment joint space narrowing is nearly bone on bon e contact. There is medial and lateral compartment subchondral cystic change, and tricompartmental de generative spurring. High riding patella. Patellar quadriceps tendon and patellar tendon enthesophyte s seen. Small suprapatellar joint effusion. Extensive vascular calcifications. There is normal osseou s mineralization. IMPRESSION: 1. No acute osseous abnormality. 2. 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 3. High riding patella. 4. Small suprapatellar joint effusion
[2020-03-11 17:16] LABS: Glucose,Whole Blood 121 mg/dL (75-99)
[2020-03-11] MEDS ORDERED: WARFARIN 3 MG TAB PO ONE (18:00)
[2020-03-11] MEDS ORDERED: WARFARIN 2 MG TAB PO ONE (18:30)
[2020-03-11 19:44] LABS: Glucose,Whole Blood 130 mg/dL (75-99)
[2020-03-11 20:14] LABS: Folate, Serum 7.2 ng/mL
[2020-03-11] MEDS: carvediloL 3.125 MG TAB PO SCH (20:30)
--- NOTE | 2020-03-11 21:45 | EEG ---
ELECTROENCEPHALOGRAM REPORT DATE OF SERVICE: 03/11/2020. PREAMBLE: This is an 89-year-old male with syncopal spells. This study is performed to evaluate for any epileptiform activity. EEG FINDINGS: This is a 21-channel routine EEG recording in a patient utilizing 10-20 international system with referential and bipolar montages. Background consists of well developed, well regulated, moderate voltage activity in 8 hertz alpha. Background is posterior- dominant and is reactive to eye opening and closing. Photic driving response was not clearly seen. Mild drowsiness was seen with appearance of bilaterally symmetric theta frequency rhythm. Deeper stages of sleep were not seen. No focal or generalized epileptiform activity was seen. EKG rhythm lead revealed frequent PVCs. IMPRESSION: This is a normal awake and drowsy EEG. No focal lateralized or epileptiform activity was seen. EKG rhythm lead revealed frequent PVCs. Correlate for possible arrhythmia. MMODL / IJN: [id number] /
[2020-03-12 06:17] LABS: Basophils % (A) 0 %; Eosinophils # (A) 0.1 k/uL (0-0.7); Eosinophils % (A) 1 %; HCT 37.1 % (39.0-53.0); HGB 11.3 gm/dL (13.0-17.5); Hypochromasia Slight; Lymphocytes # (A) 0.9 k/uL (1.0-4.8); Lymphocytes % (A) 11 %; MCH 27.9 pg (25.0-35.0); MCHC 30.5 g/dL (31.0-37.0); MCV 91.6 fL (80.0-100.0); Mean Platelet Volume 7.6; Monocytes # (A) 0.6 k/uL (0-1.0); Monocytes % (A) 8 %; Neutrophils # (A) 6.2 k/uL (1.3-7.7); Neutrophils % (A) 77 %; Platelet Count 202 k/uL (150-450); RBC 4.05 m/uL (4.30-5.90); RDW 14.2 % (11.5-15.5); WBC 8.1 k/uL (3.8-10.6)
[2020-03-12 06:38] LABS: INR 1.7 (<1.2); Prothrombin Time 16.7 sec (9.0-12.0)
--- NOTE | 2020-03-12 06:42 | P.PN ---
Subjective Progress Note Date: 03/11/20 Principal diagnosis: This is an 89-year-old male who was recently admitted with weakness, unsteady gait, and frequent falling and is being closely monitored. Patient has been progressively getting more weak over the last few days. Patient is being evaluated by neurology as well as physical therapy. Cardiology has been consulted as well. Patient underwent EEG which was within normal limits. Patient also continues to have lower extremity and hip pain with weakness and unsteady gait and underwent xrays of the right knee showing no acute osseus abnormality with a small joint effusion and right hip xray showed no acute fracture or dislocation noted. Case management and social work following for possible ECF placement for continued PT/OT therapy for strength and mobility as patient currently lives alone. Review of systems: Constitutional: No reports of fatigue, fevers, or chills Cardiovascular: No reports of chest pain or palpitations Respiratory: No reports of shortness of breath or cough GI: No reports of nausea, vomiting, or diarrhea : No reports of dysuria or retention Neurovascular: Reports some weakness and unsteady gait, no reports of numbness Muskuloskeletal: Reports right knee and hip pain and weakness Active Medications Acetaminophen (Tylenol Tab) 650 mg PO Q6HR PRN PRN Reason: Mild Pain or Fever > 100.5 Last Admin: 03/11/20 04:37 Dose: 650 mg Documented by: Hydrocodone Bitart/Acetaminophen (Aptos 5-325) 1 each PO Q6HR PRN PRN Reason: Pain Last Admin: 03/11/20 10:22 Dose: 1 each Documented by: Alprazolam (Xanax) 0.25 mg PO TID PRN PRN Reason: Anxiety Carvedilol (Coreg) 3.125 mg PO BID [facility] Furosemide (Lasix) 40 mg PO DAILY [facility] Glimepiride (Amaryl) 1 mg PO Q48H [facility] Hydromorphone HCl (Dilaudid) 0.5 mg IVP Q6HR PRN PRN Reason: Severe Pain Insulin Aspart (Novolog) 0 unit SQ ACHS [facility]; Protocol Last Admin: 03/11/20 11:56 Dose: Not Given Documented by: Miscellaneous Information (Coumadin Per Pharmacy) 1 each MISCELLANE DIRECTED PRN PRN Reason: Per Protocol Naloxone HCl (Narcan) 0.2 mg IV Q2M PRN PRN Reason: Opioid Reversal Pantoprazole Sodium (Protonix) 40 mg PO AC-BRKFST [facility] Last Admin: 03/11/20 08:09 Dose: 40 mg Documented by: Potassium Chloride (K-Dur 10) 10 meq PO W/[facility] Last Admin: 03/11/20 08:09 Dose: 10 meq Documented by: Spironolactone (Aldactone) 25 mg PO DAILY [facility] Last Admin: 03/11/20 08:09 Dose: 25 mg Documented by: Tamsulosin HCl (Flomax) 0.4 mg PO DAILY [facility] Last Admin: 03/11/20 08:09 Dose: 0.4 mg Documented by: Warfarin Sodium (Coumadin) 2.5 mg PO DAILY@1800 [facility]; Protocol Warfarin Sodium (Coumadin) 3 mg PO ONCE@1800 ONE Stop: 03/11/20 18:01 Objective - Vital Signs Vital signs: Vital Signs Temp 97.7 F 03/11/20 12:44 Pulse 83 03/11/20 12:44 Resp 16 03/11/20 05:00 BP 127/77 03/11/20 12:44 Pulse Ox 95 03/11/20 05:00 Intake & Output 03/10/20 03/11/20 03/11/20 18:59 06:59 18:59 Intake Total 590 Output Total 500 Balance 90 Weight 127.006 kg Intake: Oral 590 Output: Urine 500 Other: Voiding Method Bedpan Bedpan Bedpan Urinal Urinal Urinal # Voids 1 # Bowel Movements 1 - Exam Gen: This is a 89-year-old male sitting up in the chair, awake, alert and oriented 3, well-developed, well-nourished. Hard of hearing. Temp is 97.7F, pulse is 78, respirations are 80, blood pressure is 136/77, oxygen saturation is 95% on room air. HEENT: Head is atraumatic, normocephalic. Pupils equal, round. Sclerae is anicteric. NECK: Supple. No JVD. No lymphadenopathy. No thyromegaly. LUNGS: Diminished breath sounds at the bases with a few scattered rhonchi noted. No intercostal retractions. HEART: S1, S2 muffled ABDOMEN: Soft. Bowel sounds are present. No masses. No tenderness. EXTREMITIES: No pedal edema. No calf tenderness. Right leg pain and swelling noted on palpation NEUROLOGICAL: Patient is awake, alert and oriented x3. Cranial nerves 2 through 12 are grossly intact. Diffusely weak with gait dysfunction noted, diffuse tremors right more so than left - Labs CBC & Chem 7: 03/12/20 05:47 03/11/20 06:51 Labs: Abnormal Lab Results - Last 24 Hours (Table) 03/10/20 03/10/20 03/11/20 Range/Units 17:21 19:55 06:51 Hgb 12.5 L (13.0-17.5) gm/dL PT (9.0-12.0) sec INR (<1.2) POC Glucose (mg/dL) 102 H 106 H (75-99) mg/dL Calcium (8.4-10.2) mg/dL HDL Cholesterol (40-60) mg/dL 03/11/20 03/11/20 03/11/20 Range/Units 06:51 06:51 11:28 Hgb (13.0-17.5) gm/dL PT 14.6 H (9.0-12.0) sec INR 1.5 H (<1.2) POC Glucose (mg/dL) 101 H (75-99) mg/dL Calcium 8.2 L (8.4-10.2) mg/dL HDL Cholesterol 30 L (40-60) mg/dL Microbiology - Last 24 Hours (Table) 03/10/20 Unknown Urine Culture - Preliminary Urine,Clean Catch Assessment and Plan Assessment: Recurrent syncope and falls, rule out acute stroke Possible right lateral rectus paralysis and cerebellar signs. 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 PT/OT following along with neurology and cardiology. Patient will require over 2 night stay of hospitalization given current medical conditions and work-up. Case management and social work following and working on possible placement at an [facility] for continued PT/OT therapy for strength and mobility as his gait continues to be unsteady and has been progressively becoming more weak and more frequent falling and syncopal episodes. Patient currently lives at home alone. Due to multiple complex medical issues, prognosis is guarded. Further recommendations to follow.
[2020-03-12 06:59] LABS: Calcium 8.4 mg/dL (8.4-10.2); Potassium 3.5 mmol/L (3.5-5.1)
[2020-03-12 07:24] LABS: Glucose,Whole Blood 113 mg/dL (75-99)
[2020-03-12] MEDS: INSULIN ASPART (NovoLOG) 100 UNIT/ML VIAL SQ SCH ×4 (07:32→20:45)
[2020-03-12] MEDS: POTASSIUM CHLORIDE ER 10 MEQ TAB.ER.PRT PO SCH (07:52)
[2020-03-12] MEDS: TAMSULOSIN 0.4 MG CAP.ER.24H PO SCH (07:52)
[2020-03-12] MEDS: PANTOPRAZOLE 40 MG TABLET PO SCH (07:52)
[2020-03-12] MEDS: SPIRONOLACTONE 25 MG TAB PO SCH (07:52)
[2020-03-12] MEDS: GLIMEPIRIDE 1 MG TAB PO SCH (07:52)
[2020-03-12] MEDS: carvediloL 3.125 MG TAB PO SCH ×2 (07:52→20:52)
[2020-03-12] MEDS ORDERED: FUROSEMIDE 40 MG TAB PO SCH (09:00)
[2020-03-12 11:38] LABS: Glucose,Whole Blood 96 mg/dL (75-99)
--- NOTE | 2020-03-12 11:53 | P.PN ---
Subjective HISTORY OF PRESENTING ILLNESS This is a pleasant 89-year-old male past medical history significant for chronic persistent atrial fibrillation, dilated cardiomyopathy, chronic systolic heart failure and diabetes mellitus. He follows in the office with Dr. Guadarrama. He is seen and examined sitting up in the chair in no acute distress. He has been up and ambulating and denies any further symptoms of dizziness. Orthostatic vital signs obtained last night did show a significant drop in his blood pressure with position change. He denies chest pain, shortness of breath or palpitations. Telemetry tracings have been unremarkable. Echocardiogram obtained reveals improved LV systolic function. PHYSICAL EXAMINATION Blood pressure 127/77 heart rate 83 afebrile and maintaining oxygen saturation on room air. CONSTITUTIONAL: No apparent distress. Obese. HEENT: Head is normocephalic. Pupils are equal, round. Sclerae anicteric. Mucous membranes of the mouth are moist. No JVD. No carotid bruit. CHEST EXAMINATION: Lungs are clear to auscultation. No chest wall tenderness is noted on palpation or with deep breathing. HEART EXAMINATION: Irregular rate and rhythm. S1, S2 heard. Systolic ejection murmur at the base, no gallops or rub. EXTREMITIES: 2+ peripheral pulses, no lower extremity edema and no calf tenderness. ASSESSMENT Near syncope Dilated cardiomyopathy Chronic persistent atrial fibrillation Hypertension Diabetes mellitus PLAN Decrease Lasix to 20 mg daily and Aldactone to 12.5 mg daily. Continue to hold losartan. Continue Coreg as previously ordered. If he continues to have orthostatic changes we will consider adding midodrine. Continue checking orthostatic vital signs. Further recommendations to follow based upon clinical course. Nurse Practitioner note has been reviewed, I agree with a documented findings and plan of care. Patient was seen and examined. Objective - Vital Signs Vital signs: Vital Signs Temp 98.0 F 03/12/20 05:20 Pulse 77 03/12/20 08:00 Resp 16 03/12/20 08:00 BP 123/86 03/12/20 05:20 Pulse Ox 94 L 03/12/20 05:20 Intake & Output 03/11/20 03/12/20 03/12/20 18:59 06:59 18:59 Intake Total 650 1390 Output Total 400 Balance 650 990 Intake: Intake, IV Titration 800 Amount Sodium Chloride 0.9% 1, 800 000 ml @ 100 mls/hr IV . Q10H [facility] Rx#:[id number] Oral 650 590 Output: Urine 400 Other: Voiding Method Bedpan Bedpan Bedpan Urinal Urinal Urinal # Voids 1 0 # Bowel Movements 1 0 - Labs CBC & Chem 7: 03/12/20 05:47 03/12/20 05:47 Labs: Abnormal Lab Results - Last 24 Hours (Table) 03/11/20 03/11/20 03/12/20 Range/Units 17:04 19:43 05:47 RBC 4.05 L (4.30-5.90) m/uL Hgb 11.3 L (13.0-17.5) gm/dL Hct 37.1 L (39.0-53.0) % MCHC 30.5 L (31.0-37.0) g/dL Lymphocytes # 0.9 L (1.0-4.8) k/uL PT (9.0-12.0) sec INR (<1.2) Glucose (74-99) mg/dL POC Glucose (mg/dL) 121 H 130 H (75-99) mg/dL 03/12/20 03/12/20 03/12/20 Range/Units 05:47 05:47 07:14 RBC (4.30-5.90) m/uL Hgb (13.0-17.5) gm/dL Hct (39.0-53.0) % MCHC (31.0-37.0) g/dL Lymphocytes # (1.0-4.8) k/uL PT 16.7 H (9.0-12.0) sec INR 1.7 H (<1.2) Glucose 117 H (74-99) mg/dL POC Glucose (mg/dL) 113 H (75-99) mg/dL Microbiology - Last 24 Hours (Table) 03/10/20 Unknown Urine Culture - Final Urine,Clean Catch 03/10/20 17:37 Blood Culture - Preliminary Blood No Growth after 24 hours
--- NOTE | 2020-03-12 16:12 | P.PN ---
Subjective Progress Note Date: 03/12/20 Principal diagnosis: This is an 89-year-old male who was recently admitted with weakness, unsteady gait, and frequent falling and is being closely monitored. Patient has been progressively getting more weak over the last few days. Patient is being evaluated by neurology as well as physical therapy. Cardiology has been consulted as well. Patient underwent EEG which was within normal limits. Patient also continues to have lower extremity and hip pain with weakness and unsteady gait and underwent xrays of the right knee showing no acute osseus abnormality with a small joint effusion and right hip xray showed no acute fracture or dislocation noted. Case management and social work following for possible ECF placement for continued PT/OT therapy for strength and mobility as patient currently lives alone. Review of systems: Constitutional: No reports of fatigue, fevers, or chills Cardiovascular: No reports of chest pain or palpitations Respiratory: No reports of shortness of breath or cough GI: No reports of nausea, vomiting, or diarrhea : No reports of dysuria or retention Neurovascular: Reports some weakness and unsteady gait, no reports of numbness Muskuloskeletal: Reports right knee and hip pain and weakness 03/12/2020 Patient is seen and evaluated and follow-up and is being closely monitored. Cardiology and neurology following. Adjustments to medications have been made in patient's Lasix be decreased to 20 mg daily and will add Aldactone. Patient maintained on Coumadin and INR today is 1.7. Patient was found to be orthostatic with some intermittent low blood pressure readings. PT/OT following as well. Case management and social work following and patient is discussing with daughter about possible ECF for continued PT/OT therapy for strengthening mobility. Early patient denies any chest pain, shortness of breath, or palpitations. Patient is afebrile. No reports of nausea or vomiting noted and patient is tolerating diet. Objective - Vital Signs Vital signs: Vital Signs Temp 97.6 F 03/12/20 12:00 Pulse 72 03/12/20 15:25 Resp 19 03/12/20 15:25 BP 122/78 03/12/20 12:00 Pulse Ox 96 03/12/20 12:00 Intake & Output 03/11/20 03/12/20 03/12/20 18:59 06:59 18:59 Intake Total 650 1390 Output Total 400 400 Balance 650 990 -400 Intake: Intake, IV Titration 800 Amount Sodium Chloride 0.9% 1, 800 000 ml @ 100 mls/hr IV . Q10H [facility] Rx#:[id number] Oral 650 590 Output: Urine 400 400 Other: Voiding Method Bedpan Bedpan Bedpan Urinal Urinal Urinal # Voids 1 0 0 # Bowel Movements 1 0 - Exam Gen: This is a 89-year-old male sitting up in the chair, awake, alert and oriented 3, well-developed, well-nourished. Hard of hearing. Temp is 98.0F, pulse is 77, respirations are 16, blood pressure is 123/86, oxygen saturation is 94% on room air. HEENT: Head is atraumatic, normocephalic. Pupils equal, round. Sclerae is anicteric. NECK: Supple. No JVD. No lymphadenopathy. No thyromegaly. LUNGS: Diminished breath sounds at the bases with a few scattered rhonchi noted. No intercostal retractions. HEART: S1, S2 muffled ABDOMEN: Soft. Bowel sounds are present. No masses. No tenderness. EXTREMITIES: No pedal edema. No calf tenderness. NEUROLOGICAL: Patient is awake, alert and oriented x3. Cranial nerves 2 through 12 are grossly intact. Diffusely weak with gait dysfunction noted, diffuse tremors right more so than left - Labs CBC & Chem 7: 03/12/20 05:47 03/12/20 05:47 Labs: Abnormal Lab Results - Last 24 Hours (Table) 03/11/20 03/11/20 03/12/20 Range/Units 17:04 19:43 05:47 RBC 4.05 L (4.30-5.90) m/uL Hgb 11.3 L (13.0-17.5) gm/dL Hct 37.1 L (39.0-53.0) % MCHC 30.5 L (31.0-37.0) g/dL Lymphocytes # 0.9 L (1.0-4.8) k/uL PT (9.0-12.0) sec INR (<1.2) Glucose (74-99) mg/dL POC Glucose (mg/dL) 121 H 130 H (75-99) mg/dL 03/12/20 03/12/20 03/12/20 Range/Units 05:47 05:47 07:14 RBC (4.30-5.90) m/uL Hgb (13.0-17.5) gm/dL Hct (39.0-53.0) % MCHC (31.0-37.0) g/dL Lymphocytes # (1.0-4.8) k/uL PT 16.7 H (9.0-12.0) sec INR 1.7 H (<1.2) Glucose 117 H (74-99) mg/dL POC Glucose (mg/dL) 113 H (75-99) mg/dL Microbiology - Last 24 Hours (Table) 03/10/20 Unknown Urine Culture - Final Urine,Clean Catch 03/10/20 17:37 Blood Culture - Preliminary Blood No Growth after 24 hours Assessment and Plan Assessment: Recurrent syncope and falls, rule out acute stroke Possible right lateral rectus paralysis and cerebellar signs. 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 PT/OT following along with neurology and cardiology. Patient will require over 2 night stay of hospitalization given current medical conditions and work-up. Case management and social work following and working on possible placement at an ECF for continued PT/OT therapy for strength and mobility as his gait continues to be unsteady and has been progressively becoming more weak and more frequent falling and syncopal episodes. Patient was orthostatic. We'll decrease Lasix dose and add Aldactone. Patient is currently maintained on Coumadin and will repeat a.m. labs and monitor INR closely. Patient currently lives at home alone. Due to multiple complex medical issues, prognosis is guarded. Further recommendations to follow.
[2020-03-12 17:07] LABS: Glucose,Whole Blood 101 mg/dL (75-99)
[2020-03-12] MEDS ORDERED: WARFARIN 2.5 MG TAB PO SCH (18:00)
--- NOTE | 2020-03-12 18:51 | P.PN ---
Subjective Progress Note Date: 03/12/20 No further syncopal spells. Feeling fine. Objective - Vital Signs Vital signs: Vital Signs Temp 97.6 F 03/12/20 12:00 Pulse 72 03/12/20 15:25 Resp 19 03/12/20 15:25 BP 122/78 03/12/20 12:00 Pulse Ox 96 03/12/20 12:00 Intake & Output 03/11/20 03/12/20 03/12/20 18:59 06:59 18:59 Intake Total 650 1390 Output Total 400 400 Balance 650 990 -400 Intake: Intake, IV Titration 800 Amount Sodium Chloride 0.9% 1, 800 000 ml @ 100 mls/hr IV . Q10H [facility] Rx#:[id number] Oral 650 590 Output: Urine 400 400 Other: Voiding Method Bedpan Bedpan Bedpan Urinal Urinal Urinal # Voids 1 0 0 # Bowel Movements 1 0 - Exam No change. Mental status normal. - Labs CBC & Chem 7: 03/12/20 05:47 03/12/20 05:47 Labs: Abnormal Lab Results - Last 24 Hours (Table) 03/11/20 03/12/20 03/12/20 Range/Units 19:43 05:47 05:47 RBC 4.05 L (4.30-5.90) m/uL Hgb 11.3 L (13.0-17.5) gm/dL Hct 37.1 L (39.0-53.0) % MCHC 30.5 L (31.0-37.0) g/dL Lymphocytes # 0.9 L (1.0-4.8) k/uL PT 16.7 H (9.0-12.0) sec INR 1.7 H (<1.2) Glucose (74-99) mg/dL POC Glucose (mg/dL) 130 H (75-99) mg/dL 03/12/20 03/12/20 03/12/20 Range/Units 05:47 07:14 17:05 RBC (4.30-5.90) m/uL Hgb (13.0-17.5) gm/dL Hct (39.0-53.0) % MCHC (31.0-37.0) g/dL Lymphocytes # (1.0-4.8) k/uL PT (9.0-12.0) sec INR (<1.2) Glucose 117 H (74-99) mg/dL POC Glucose (mg/dL) 113 H 101 H (75-99) mg/dL Microbiology - Last 24 Hours (Table) 03/10/20 Unknown Urine Culture - Final Urine,Clean Catch 03/10/20 17:37 Blood Culture - Preliminary Blood No Growth after 24 hours Assessment and Plan Assessment: * 89-year-old male admitted with 3 episodes of syncopal spells. Patient states that he was feeling dizzy for about 15-20 seconds before he passed out. No significant postictal confusion. Symptoms suggestive of possible orthostasis versus arrhythmia. Patient's orthostatics checked in the hospital however was negative. * Atrial fibrillation * Chronic right knee pain. Plan: * Cardiology is on board, need to rule out arrhythmia. Orthostatics checked in the hospital were negative. Cardiology is addressing patient's medications. * EEG normal. * X-ray of the right hip showed no fracture or dislocation. X-ray of the right knee showed extensive degenerative changes of the right knee, increased from 2016 comparison. High riding patella. Small suprapatellar joint effusion. No fracture. * B12 851, folate 7.2 and TSH normal 2.8. * Neurologically clear. Neurology will sign off.
[2020-03-12] MEDS: HYDROcodone/APAP 5-325MG 1 EACH TAB PO PRN (20:50)
[2020-03-12 20:55] LABS: Glucose,Whole Blood 127 mg/dL (75-99)
[2020-03-12 22:26] LABS: Glucose,Whole Blood 87 mg/dL (75-99)
[2020-03-13 07:16] LABS: Glucose,Whole Blood 102 mg/dL (75-99)
[2020-03-13] MEDS: INSULIN ASPART (NovoLOG) 100 UNIT/ML VIAL SQ SCH ×4 (07:54→20:20)
[2020-03-13 08:05] LABS: Basophils % (A) 0 %; Eosinophils # (A) 0.1 k/uL (0-0.7); Eosinophils % (A) 1 %; HGB 10.9 gm/dL (13.0-17.5); Hypochromasia Slight; Lymphocytes % (A) 13 %; MCH 28.4 pg (25.0-35.0); MCHC 31.3 g/dL (31.0-37.0); MCV 90.7 fL (80.0-100.0); Mean Platelet Volume 7.6; Monocytes # (A) 0.6 k/uL (0-1.0); Monocytes % (A) 8 %; Neutrophils # (A) 5.4 k/uL (1.3-7.7); Neutrophils % (A) 74 %; Platelet Count 214 k/uL (150-450); RBC 3.86 m/uL (4.30-5.90); RDW 14.3 % (11.5-15.5); WBC 7.3 k/uL (3.8-10.6)
[2020-03-13 08:20] LABS: Potassium 3.4 mmol/L (3.5-5.1)
[2020-03-13 08:21] LABS: African American GFR (CKD) >90 (>60 ml/min/1.73 sqM); Anion Gap 5 mmol/L; Blood Urea Nitrogen 14 mg/dL (9-20); Calcium 8.1 mg/dL (8.4-10.2); Carbon Dioxide 29 mmol/L (22-30); Chloride 105 mmol/L (98-107); Glucose 105 mg/dL (74-99); Non-African American GFR(CKD) 78 (>60 ml/min/1.73 sqM); Sodium 139 mmol/L (137-145)
[2020-03-13 08:27] LABS: INR 1.7 (<1.2); Prothrombin Time 16.9 sec (9.0-12.0)
[2020-03-13] MEDS: TAMSULOSIN 0.4 MG CAP.ER.24H PO SCH (09:04)
[2020-03-13] MEDS: PANTOPRAZOLE 40 MG TABLET PO SCH (09:04)
[2020-03-13] MEDS: carvediloL 3.125 MG TAB PO SCH ×2 (09:04→21:12)
[2020-03-13] MEDS: POTASSIUM CHLORIDE ER 10 MEQ TAB.ER.PRT PO SCH (09:04)
[2020-03-13] MEDS: FUROSEMIDE 20 MG TAB PO SCH (09:04)
[2020-03-13] MEDS: SPIRONOLACTONE 25 MG TAB PO SCH (09:05)
[2020-03-13 11:02] LABS: Glucose,Whole Blood 137 mg/dL (75-99)
--- NOTE | 2020-03-13 11:20 | PN ---
PROGRESS NOTE DATE OF SERVICE: 03/13/2020 This 89-year-old gentleman who was admitted with recurrent syncope and falls is being closely monitored. The patient is planned to have the rehab in the ECF on Sunday. No chest pain. No palpitations. No fever. PHYSICAL EXAMINATION: Alert and oriented x2. Pulse 86, blood pressure 150/70. Orthostatic changes present.: HEENT: Conjunctivae normal. Oral mucosa moist. NECK: No jugular venous distention. No lymph node enlargement. CARDIOVASCULAR: S1, S2, muffled. No S3, no S4, RESPIRATORY: Diminished breath sounds at the bases. No rhonchi, no crackles. ABDOMEN: Soft, nontender. LEGS: No edema, no swelling. NERVOUS SYSTEM: No focal motor or sensory deficits. LABS: At this time show WBC 7.2, hemoglobin 10.9. ASSESSMENT: 1. Recurrent syncopal falls, rule out acute stroke, possibly orthostatic hypotension. 2. Possible right lateral rectus palsy and cerebellar signs, rule out vertebrobasilar insufficiency. 3. Coumadin monitoring. 4. Increased WBCs. 5. Atrial fibrillation, chronic. 6. History of congestive heart failure, ejection fraction unknown. 7. Diabetes mellitus type 2. 8. Hypertension. 9. Gait dysfunction. 10.History of degenerative joint disease. 11.History of syncope. 12.History of peripheral neuropathy, bilateral feet. 13.Sarcoidosis, bilateral lungs. 14.History of benign prostatic hypertrophy. 15.History of cholecystectomy. 16.History of anxiety, depression. 17.Obesity, body mass index of 40.2. 18.FULL CODE. RECOMMENDATIONS AND DISCUSSION: Recommend to continue current medications, symptomatic treatment. Otherwise, at this time I would recommend continue with current medications, monitor orthostatic vitals. Otherwise, PT/OT evaluation, possible ECF rehab. Guarded prognosis. Further recommendations to follow. MMODL / IJN: [id number] /
--- NOTE | 2020-03-13 12:26 | P.PN ---
Subjective Progress Note Date: 03/13/20 The patient is an 89-year-old male with past medical history of persistent atrial fibrillation, dilated cardiomyopathy, chronic systolic heart failure, and diabetes who follows in the office with Dr. Guadarrama. He is seen and examined lying comfortably in bed. He states he has been feeling well. Unfor tunately he has not gotten up this morning, therefore he has not had any recurrent dizziness. He denies any chest pain, chest pressure, palpitations, or shortness of breath. GENERAL: Well-appearing, well-nourished and in no acute distress. Obese NECK: Supple without JVD or thyromegaly. LUNGS: Breath sounds diminished to auscultation bilaterally. Respiration equal and unlabored. No wheezes, rales or rhonchi. HEART: Irregular rate and rhythm without rubs or gallops. S1 and S2 heard. Systolic murmur at the base. EXTREMITIES: +1 lower extremity edema. No clubbing or cyanosis. Peripheral pulses intact and strong. Vitals: Blood pressure 128/57 supine, 121/63 sitting, 128/68 standing. Heart rate 55 supine, 67 sitting, 70 standing. 96% on room air. Afebrile. Labs: WBC 7.3, hemoglobin 10.9, hematocrit 35.0, sodium 139, potassium 3.4, creatinine 0.83, BUN 14 Impression: #1 near syncope #2 orthostatic hypotension, improved with reduction in diuretics #3 dilated cardiomyopathy #4 persistent atrial fibrillation, on warfarin #5 hypertension #6 diabetes mellitus Plan: Continue current medication regimen. Monitor for worsening lower extremity swelling with reduced diuretic dose; suggest compression socks or compression pumps. Objective - Vital Signs Vital signs: Vital Signs Temp 98 F 03/13/20 11:53 Pulse 55 L 03/13/20 11:53 Resp 18 03/13/20 11:53 BP 128/57 03/13/20 11:53 Pulse Ox 96 03/13/20 11:53 Intake & Output 03/12/20 03/13/20 03/13/20 18:59 06:59 18:59 Output Total 400 Balance -400 Output: Urine 400 Other: Voiding Method Bedpan Urinal Urinal Urinal Diaper Diaper Incontinent Incontinent # Voids 0 3 - Labs CBC & Chem 7: 03/13/20 07:39 03/13/20 07:39 Labs: Abnormal Lab Results - Last 24 Hours (Table) 03/12/20 03/12/20 03/13/20 Range/Units 17:05 20:34 07:15 RBC (4.30-5.90) m/uL Hgb (13.0-17.5) gm/dL Hct (39.0-53.0) % PT (9.0-12.0) sec INR (<1.2) Potassium (3.5-5.1) mmol/L Glucose (74-99) mg/dL POC Glucose (mg/dL) 101 H 127 H 102 H (75-99) mg/dL Calcium (8.4-10.2) mg/dL 03/13/20 03/13/20 03/13/20 Range/Units 07:39 07:39 07:39 RBC 3.86 L (4.30-5.90) m/uL Hgb 10.9 L (13.0-17.5) gm/dL Hct 35.0 L (39.0-53.0) % PT 16.9 H (9.0-12.0) sec INR 1.7 H (<1.2) Potassium 3.4 L (3.5-5.1) mmol/L Glucose 105 H (74-99) mg/dL POC Glucose (mg/dL) (75-99) mg/dL Calcium 8.1 L (8.4-10.2) mg/dL 03/13/20 Range/Units 11:01 RBC (4.30-5.90) m/uL Hgb (13.0-17.5) gm/dL Hct (39.0-53.0) % PT (9.0-12.0) sec INR (<1.2) Potassium (3.5-5.1) mmol/L Glucose (74-99) mg/dL POC Glucose (mg/dL) 137 H (75-99) mg/dL Calcium (8.4-10.2) mg/dL Microbiology - Last 24 Hours (Table) 03/10/20 17:37 Blood Culture - Preliminary Blood No Growth after 48 hours
[2020-03-13 17:02] LABS: Glucose,Whole Blood 114 mg/dL (75-99)
[2020-03-13] MEDS ORDERED: WARFARIN 2 MG TAB PO ONE (18:00)
[2020-03-13 20:18] LABS: Glucose,Whole Blood 130 mg/dL (75-99)
[2020-03-13] MEDS: HYDROcodone/APAP 5-325MG 1 EACH TAB PO PRN (21:12)
[2020-03-14 07:12] LABS: Glucose,Whole Blood 126 mg/dL (75-99)
[2020-03-14] MEDS: INSULIN ASPART (NovoLOG) 100 UNIT/ML VIAL SQ SCH ×4 (07:51→20:33)
[2020-03-14] MEDS: carvediloL 3.125 MG TAB PO SCH ×2 (07:59→20:33)
[2020-03-14] MEDS: FUROSEMIDE 20 MG TAB PO SCH (07:59)
[2020-03-14] MEDS: POTASSIUM CHLORIDE ER 10 MEQ TAB.ER.PRT PO SCH (07:59)
[2020-03-14] MEDS: PANTOPRAZOLE 40 MG TABLET PO SCH (07:59)
[2020-03-14] MEDS: SPIRONOLACTONE 25 MG TAB PO SCH (07:59)
[2020-03-14] MEDS: GLIMEPIRIDE 1 MG TAB PO SCH (07:59)
[2020-03-14] MEDS: TAMSULOSIN 0.4 MG CAP.ER.24H PO SCH (08:00)
[2020-03-14 08:19] LABS: ALT 13 U/L (4-49); AST 34 U/L (17-59); African American GFR (CKD) >90 (>60 ml/min/1.73 sqM); Albumin 2.8 g/dL (3.5-5.0); Alkaline Phosphatase 74 U/L (38-126); Anion Gap 6 mmol/L; Blood Urea Nitrogen 13 mg/dL (9-20); Carbon Dioxide 28 mmol/L (22-30); Chloride 104 mmol/L (98-107); Glucose 119 mg/dL (74-99); Non-African American GFR(CKD) 80 (>60 ml/min/1.73 sqM); Potassium 3.5 mmol/L (3.5-5.1); Sodium 138 mmol/L (137-145); Total Bilirubin 0.8 mg/dL (0.2-1.3); Total Protein 5.5 g/dL (6.3-8.2)
[2020-03-14 11:56] LABS: Glucose,Whole Blood 88 mg/dL (75-99)
[2020-03-14] MEDS: HYDROcodone/APAP 5-325MG 1 EACH TAB PO PRN ×2 (13:21→20:43)
[2020-03-14 13:38] LABS: INR 1.8 (<1.2); Prothrombin Time 17.3 sec (9.0-12.0)
--- NOTE | 2020-03-14 14:45 | P.PN ---
Subjective Progress Note Date: 03/14/20 Principal diagnosis: This is an 89-year-old male who was recently admitted with weakness, unsteady gait, and frequent falling and is being closely monitored. Patient has been progressively getting more weak over the last few days. Patient is being evaluated by neurology as well as physical therapy. Cardiology has been consulted as well. Patient underwent EEG which was within normal limits. Patient also continues to have lower extremity and hip pain with weakness and unsteady gait and underwent xrays of the right knee showing no acute osseus abnormality with a small joint effusion and right hip xray showed no acute fracture or dislocation noted. Case management and social work following for possible ECF placement for continued PT/OT therapy for strength and mobility as patient currently lives alone. Review of systems: Constitutional: No reports of fatigue, fevers, or chills Cardiovascular: No reports of chest pain or palpitations Respiratory: No reports of shortness of breath or cough GI: No reports of nausea, vomiting, or diarrhea : No reports of dysuria or retention Neurovascular: Reports some weakness and unsteady gait, no reports of numbness Muskuloskeletal: Reports right knee and hip pain and weakness 03/12/2020 Patient is seen and evaluated and follow-up and is being closely monitored. Cardiology and neurology following. Adjustments to medications have been made in patient's Lasix be decreased to 20 mg daily and will add Aldactone. Patient maintained on Coumadin and INR today is 1.7. Patient was found to be orthostatic with some intermittent low blood pressure readings. PT/OT following as well. Case management and social work following and patient is discussing with daughter about possible ECF for continued PT/OT therapy for strengthening mobility. Early patient denies any chest pain, shortness of breath, or palpitations. Patient is afebrile. No reports of nausea or vomiting noted and patient is tolerating diet. 03/14/2020 Patient is seen and evaluated and follow-up with no acute overnight issues. Patient continues to be weak on the right side and has some right hip and knee discomfort although states is slightly improved. PT/OT following and patient is scheduled to go to [facility] for continued PT/OT therapy for strength and mobility. Management social work following and patient will be going to [facility] upon discharge. Patient denies any chest pain, shortness of breath, or palpitations. Patient is afebrile. Patient denies any nausea or vomiting and has been tolerating diet. Patient is currently maintained on sliding scale and will continue at this time. Objective - Vital Signs Vital signs: Vital Signs Temp 98.2 F 03/14/20 12:00 Pulse 63 03/14/20 12:00 Resp 18 03/14/20 12:00 BP 118/74 03/14/20 12:00 Pulse Ox 96 03/14/20 12:00 Intake & Output 03/13/20 03/14/20 03/14/20 18:59 06:59 18:59 Intake Total 590 850 Output Total 200 100 Balance -200 490 850 Weight 125.6 kg Intake: Oral 590 850 Output: Urine 200 100 Other: Voiding Method Urinal Urinal Urinal Diaper Diaper Diaper Incontinent Incontinent Incontinent # Voids 2 2 3 # Bowel Movements 1 - Exam Gen: This is a 89-year-old male sitting up in the chair, awake, alert and oriented 3, well-developed, well-nourished. Hard of hearing. HEENT: Head is atraumatic, normocephalic. Pupils equal, round. Sclerae is anicteric. NECK: Supple. No JVD. No lymphadenopathy. No thyromegaly. LUNGS: Diminished breath sounds at the bases with a few scattered rhonchi noted. No intercostal retractions. HEART: S1, S2 muffled ABDOMEN: Soft. Bowel sounds are present. No masses. No tenderness. EXTREMITIES: No pedal edema. No calf tenderness. Right lower extremity disc omfort on palpation NEUROLOGICAL: Patient is awake, alert and oriented x3. Cranial nerves 2 through 12 are grossly intact. Diffusely weak with gait dysfunction noted, diffuse tremors right more so than left - Labs CBC & Chem 7: 03/13/20 07:39 03/14/20 07:27 Labs: Abnormal Lab Results - Last 24 Hours (Table) 03/13/20 03/13/20 03/14/20 Range/Units 17:00 20:16 01:20 PT 17.3 H (9.0-12.0) sec INR 1.8 H (<1.2) Glucose (74-99) mg/dL POC Glucose (mg/dL) 114 H 130 H (75-99) mg/dL Calcium (8.4-10.2) mg/dL Total Protein (6.3-8.2) g/dL Albumin (3.5-5.0) g/dL 03/14/20 03/14/20 Range/Units 07:10 07:27 PT (9.0-12.0) sec INR (<1.2) Glucose 119 H (74-99) mg/dL POC Glucose (mg/dL) 126 H (75-99) mg/dL Calcium 8.0 L (8.4-10.2) mg/dL Total Protein 5.5 L (6.3-8.2) g/dL Albumin 2.8 L (3.5-5.0) g/dL Microbiology - Last 24 Hours (Table) 03/10/20 17:37 Blood Culture - Preliminary Blood No Growth after 72 hours Assessment and Plan Assessment: Recurrent syncope and falls, rule out acute stroke, possibly orthostatic hypotension Possible right lateral rectus paralysis and cerebellar signs. 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 PT/OT following along with neurology and cardiology. Patient was orthostatic. Continue monitoring for orthostatic hypotension. Patient is currently maintained on Coumadin and will repeat a.m. labs and monitor INR closely. Covid 19 testing ordered and currently pending as patient will be going to [facility] for continued PT/OT therapy. Due to multiple complex medical issues, prognosis is guarded. Further recommendations to follow. Anticipate discharge in 24 hours.
[2020-03-14 17:01] LABS: Glucose,Whole Blood 95 mg/dL (75-99)
[2020-03-14] MEDS ORDERED: WARFARIN 2.5 MG TAB PO SCH (18:00)
[2020-03-14] MEDS ORDERED: WARFARIN 2 MG TAB PO ONE (18:00)
[2020-03-14 20:17] LABS: Glucose,Whole Blood 137 mg/dL (75-99)
[2020-03-15 07:08] LABS: Glucose,Whole Blood 95 mg/dL (75-99)
[2020-03-15] MEDS: INSULIN ASPART (NovoLOG) 100 UNIT/ML VIAL SQ SCH ×2 (09:05→11:24)
[2020-03-15 09:22] LABS: INR 1.8 (<1.2); Prothrombin Time 17.2 sec (9.0-12.0)
[2020-03-15] MEDS: FUROSEMIDE 20 MG TAB PO SCH (10:37)
[2020-03-15] MEDS: TAMSULOSIN 0.4 MG CAP.ER.24H PO SCH (10:38)
[2020-03-15] MEDS: SPIRONOLACTONE 25 MG TAB PO SCH (10:39)
[2020-03-15] MEDS: carvediloL 3.125 MG TAB PO SCH (10:39)
[2020-03-15 11:18] LABS: Glucose,Whole Blood 107 mg/dL (75-99)
[2020-03-15] MEDS: PANTOPRAZOLE 40 MG TABLET PO SCH (12:02)
[2020-03-15] MEDS: POTASSIUM CHLORIDE ER 10 MEQ TAB.ER.PRT PO SCH (12:02)
--- NOTE | 2020-03-15 12:28 | P.DS ---
Providers Date of admission: 03/11/20 10:33 Expected date of discharge: 03/15/20 Attending physician: Jesus Teixeira MD Consults: 03/10/20 16:40 Consult Physician Routine Consulting Provider: Juancarlos Guadarrama Consult Reason/Comments: A-fib; Weakness and near syncope Do you want consulting provider notified?: Yes 03/10/20 16:41 Consult Physician Routine Consulting Provider: Vivek Tao Consult Reason/Comments: Weakness and near syncope; Multiple falls Do you want consulting provider notified?: Yes 03/10/20 16:45 Consult Physician Routine Consulting Provider: Juancarlos Guadarrama Consult Reason/Comments: afib Do you want consulting provider notified?: Yes Primary care physician: Monica King Hospital Course: final diagnosis Recurrent syncope and falls, rule out acute stroke, possibly orthostatic hypotension Covid 19 ruled out, testing was negative Possible right lateral rectus paralysis and cerebellar signs. 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 Patient will follow-up with Dr. King upon discharge. patient was also instructed to follow-up with cardiology in the outpatient setting within the next 2 weeks. Total time taken is 35 minutes. History of present illness This is an 89-year-old male who was recently admitted with weakness, unsteady gait, and frequent falling and was being closely monitored. patient was seen and evaluated by cardiology along with neurology and underwent an EEG which was within normal limits CAT scan of the head showed no acute process. Patient was also seen by cardiology for possible syncope and adjustments to medications have been made. patient is maintained on Coumadin and will continue and will need repeat monitoring of his PT/INR in the outpatient setting to ensure he is therapeutic. Patient did have some orthostatic hypotension and medication adjustments have been made. Patient will need to follow-up with primary care provider along with cardiology in the outpatient setting once discharged from [facility]. patient continued to have frequent falls and syncopal episodes and currently lives alone and was evaluated by PT/OT and will continue at rehab with PT/OT therapy for strength and mobility. patient was tested for Covid 19 and was negative. Currently no reports of chest pain, shortness of breath, or palpitations. Patient is afebrile. No reports of nausea or vomiting and patient is tolerating diet. Patient will be discharged to [facility] today. On exam vital signs are stable. Temp is 97.8F, pulse is 54, respirations are 16, blood pressure is 125/74, oxygen saturation is 93% on room air. Cardio S1, S2 are muffled. Respiratory shows diminished breath sounds at the bases with no wheezing or rhonchi noted. Abdomen is soft and nontender. Nervous system shows mild diffuse weakness. Please refer to medication reconciliation sheet for a list of medications. Patient Condition at Discharge: Stable Plan - Discharge Summary Discharge Rx Participant: No New Discharge Prescriptions: New Spironolactone [Aldactone] 12.5 mg PO DAILY tab Furosemide [Lasix] 20 mg PO DAILY tab HYDROcodone/APAP 5-325MG [Ralls 5-325] 1 each PO Q6HR PRN #10 tab PRN Reason: Pain INSULIN ASPART (NovoLOG) [NovoLOG (formulary)] 0 unit SQ ACHS vial Pantoprazole [Protonix] 40 mg PO AC-BRKFST tablet. Continue Warfarin [Coumadin] 2.5 mg PO DAILY Tamsulosin HCl [Flomax] 0.4 mg PO DAILY Potassium Chloride ER [K-Dur 10] 10 meq PO W/BRKFST Glimepiride [Amaryl] 1 mg PO Q48H Carvedilol [Coreg] 3.125 mg PO BID Acetaminophen [Tylenol] 1,000 mg PO BID PRN PRN Reason: Pain Discontinued Spironolactone [Aldactone] 25 mg PO DAILY Losartan Potassium [Cozaar] 25 mg PO DAILY Furosemide [Lasix] 40 mg PO DAILY Discharge Medication List Acetaminophen [Tylenol] 1,000 mg PO BID PRN 03/10/20 [History] Carvedilol [Coreg] 3.125 mg PO BID 03/10/20 [History] Glimepiride [Amaryl] 1 mg PO Q48H 07/22/20 [History] Potassium Chloride ER [K-Dur 10] 10 meq PO W/BRKFST 03/10/20 [History] Tamsulosin HCl [Flomax] 0.4 mg PO DAILY 03/10/20 [History] Warfarin [Coumadin] 2.5 mg PO DAILY 03/10/20 [History] Furosemide [Lasix] 20 mg PO DAILY tab 03/15/20 [Rx] HYDROcodone/APAP 5-325MG [Ralls 5-325] 1 each PO Q6HR PRN #10 tab 03/15/20 [Rx] INSULIN ASPART (NovoLOG) [NovoLOG (formulary)] 0 unit SQ ACHS vial 03/15/20 [Rx] Pantoprazole [Protonix] 40 mg PO AC-BRKFST tablet. 03/15/20 [Rx] Spironolactone [Aldactone] 12.5 mg PO DAILY tab 03/15/20 [Rx] Follow up Appointment(s)/Referral(s): Monica King MD [Primary Care Provider] - 1-2 days Juancarlos Guadarrama MD [STAFF PHYSICIAN] - 2 Weeks Patient Instructions/Handouts: Heart Failure (DC), Dehydration (DC), Syncope (DC), Type 2 Diabetes in Adults: New Diagnosis (DC) Activity/Diet/Wound Care/Special Instructions: Patient is going to [facility] Activity as tolerated Continue with consistent carb heart healthy diet Continue the monitoring blood sugars before meals at bedtime and treat accordingly Continue working with physical therapy Discharge Disposition: TRANSFER TO SNF/ECF
[2020-03-15 15:04] VITALS: BP 140/74; PULSE 66; RESP 21; TEMP 97.7
[2020-03-15] MEDS ORDERED: WARFARIN 5 MG TAB PO ONE (18:00)
== END 2020-03-15 15:46 | DRG 312 ==
LOC: EC 11:10 → 5NMEDONC 14:23 → OBSVTOIN 03-11 10:33
PROVIDERS: ADMIT Internal Medicine; ATTEND Internal Medicine
DX: I95.1 Orthostatic hypotension (principal); I42.0 Dilated cardiomyopathy; I48.19 Other persistent atrial fibrillation; I50.22 Chronic systolic (congestive) heart failure; Z68.41 Body mass index [BMI] 40.0-44.9, adult; Z11.59 Encounter for screening for other viral diseases; E11.42 Type 2 diabetes mellitus with diabetic polyneuropathy; I11.0 Hypertensive heart disease with heart failure; D86.0 Sarcoidosis of lung; G31.9 Degenerative disease of nervous system, unspecified; F32.9 Major depressive disorder, single episode, unspecified; I44.7 Left bundle-branch block, unspecified; E86.0 Dehydration; F41.9 Anxiety disorder, unspecified; R29.6 Repeated falls; H91.90 Unspecified hearing loss, unspecified ear; M17.11 Unilateral primary osteoarthritis, right knee; N40.0 Benign prostatic hyperplasia without lower urinary tract symptoms; E66.9 Obesity, unspecified; I65.23 Occlusion and stenosis of bilateral carotid arteries; G89.29 Other chronic pain; I08.3 Combined rheumatic disorders of mitral, aortic and tricuspid valves; M25.551 Pain in right hip; D72.829 Elevated white blood cell count, unspecified; W19.XXXA Unspecified fall, initial encounter; Z79.899 Other long term (current) drug therapy; Z79.01 Long term (current) use of anticoagulants; Z90.49 Acquired absence of other specified parts of digestive tract; Z87.891 Personal history of nicotine dependence; Z79.84 Long term (current) use of oral hypoglycemic drugs; Z98.42 Cataract extraction status, left eye; Z98.41 Cataract extraction status, right eye; Z96.1 Presence of intraocular lens
CPT/HCPCS: 36415; 70450; 71046; 73502; 80048; 80053; 80061; 81001; 82607; 82746; 83605; 83735; 84443; 84484; 85025; 85610; 85730; 87040; 87086; 87635; 93005; 93306; 93880; 95816; 99285